=== PATIENT | male | born 1975 | race Hispanic/Latino ===

== ENCOUNTER 2020-09-01 14:19 | Inpatient (IN) | payer OTHER ==
[~2020-09-01] VITALS: Ht 190.5 cm; Wt 78.5 kg
[2020-09-01 14:45] LABS: BASOPHILS % (AUTO) 0.5 % (0.0-5.0); EOSINOPHILS % (AUTO) 2.4 % (0.0-8.0); HEMATOCRIT 41.5 % (42-54); MEAN CORPUSCULAR HEMOGLOBIN 30.8 pg (27.0-33.0); MEAN CORPUSCULAR HGB CONC 35.2 g/dL (32.0-36.0); MEAN CORPUSCULAR VOLUME 87.6 fL (79-99); MONOCYTES % (AUTO) 8.7 % (3.0-13.0); NEUTROPHILS % (AUTO) 67.2 % (40.0-77.0); PLATELET COUNT (AUTO) 295 K/uL (130-400); RED BLOOD CELL COUNT(AUTO) 4.74 MIL/uL (4.50-6.20); RED CELL DISTRIBUTION WIDTH 12.5 % (11.0-15.5); WHITE BLOOD COUNT (AUTO) 8.2 K/uL (4.8-10.8)
[2020-09-01] MEDS ORDERED: 0.9%NACL 1000ML 1,000 ML IV SCH (16:30)
[2020-09-01] MEDS ORDERED: 0.9%NACL 1000ML 1,000 ML IV ONE (16:30)
[2020-09-01 16:57] LABS: ACETAMINOPHEN < 1 mcg/mL (10-29); ALCOHOL, BLOOD < 3 mg/dL (0-10); SALICYLATE < 2.8 mg/dL (2.8-20.0)
[2020-09-01 17:01] LABS: CREATININE 0.7 mg/dL (0.5-1.5); POTASSIUM 3.8 mmol/L (3.5-5.1)
[2020-09-01 17:06] LABS: ALBUMIN 4.2 g/dL (3.5-5.0); BILIRUBIN,TOTAL 0.5 mg/dL (0.2-1.0); TOTAL PROTEIN, SERUM 7.2 g/dL (6.0-8.3)
[2020-09-01 17:33] LABS: APPEARANCE,URINE Clear (CLEAR); BILIRUBIN,URINE Negative (NEGATIVE); COLOR,URINE Yellow (YELLOW); GLUCOSE, URINE (UA) Negative (NEGATIVE); KETONES,URINE Negative (NEGATIVE); LEUKOCYTE ESTERASE ,URINE Negative (NEGATIVE); NITRATE,URINE Negative (NEGATIVE); OCCULT BLOOD,URINE Negative (NEGATIVE); PROTEIN,URINE Negative (NEGATIVE)
[2020-09-01] MEDS ORDERED: HYDR-4030 PO (17:39)
[2020-09-01] MEDS ORDERED: QUET50TA22 PO (17:39)
[2020-09-01] MEDS ORDERED: ONDA4TAB4 PO (17:39)
[2020-09-01] MEDS ORDERED: MAGN30OR PO (17:39)
[2020-09-01] MEDS ORDERED: LOPE2CAP PO (17:39)
[2020-09-01] MEDS ORDERED: OLAN10VI2 IM (17:39)
[2020-09-01] MEDS ORDERED: LORAZEPAM 2 MG/ML 1 ML VIAL ONE (17:40)
[2020-09-01] MEDS ORDERED: HALOPERIDOL LACTATE 5 MG/ML VIAL ONE (17:40)
[2020-09-01 17:41] LABS: AMPHET/METH SCREEN,URINE NEGATIVE (NEGATIVE); BARBITURATE SCREEN, URINE NEGATIVE (NEGATIVE); BENZODIAZEPINES SCREEN,URINE NEGATIVE (NEGATIVE); CANNABINOID SCREEN,URINE NEGATIVE (NEGATIVE); COCAINE SCREEN,URINE NEGATIVE (NEGATIVE); OPIATE SCREEN,URINE NEGATIVE (NEGATIVE); PHENCYCLIDINE SCREEN,URINE NEGATIVE (NEGATIVE)
[2020-09-01] MEDS: 0.9%NACL 1000ML 1,000 ML IV SCH ×2 (17:49→23:55)
[2020-09-01] MEDS ORDERED: LORAZEPAM 2 MG/ML 1 ML VIAL IVP ONE (18:00)
[2020-09-01] MEDS ORDERED: HALOPERIDOL LACTATE 5 MG/ML VIAL IV SCH (18:00)
[2020-09-01] MEDS ORDERED: DiphenhydrAMINE HCL 50 MG/ML VIAL IV ONE (18:00)
[2020-09-01] MEDS ORDERED: HALOPERIDOL LACTATE 5 MG/ML VIAL IM SCH (18:30)
[2020-09-01] MEDS ORDERED: LORAZEPAM 2 MG/ML 1 ML VIAL IVP STA (18:39)
[2020-09-01 19:53] VITALS: BP 137/78
[2020-09-01] MEDS ORDERED: ZIPRASIDONE MESYLATE 20 MG/VIAL IM ONE (20:00)
[2020-09-01] MEDS ORDERED: HYDROXYZINE 25 MG TABLET PO PRN (22:00)
[2020-09-01] MEDS ORDERED: QUETIAPINE FUMARATE 25 MG TAB PO PRN (22:00)
[2020-09-01 22:30] VITALS: BP 136/57
[2020-09-02] VITALS (7 sets, daily range): BP systolic 128–154; BP diastolic 64–99
[2020-09-02] MEDS: 0.9%NACL 1000ML 1,000 ML IV SCH ×3 (06:36→21:41)
[2020-09-02] MEDS ORDERED: 0.9% NACL 500ML IV.SOLN 500 ML IV ONE ×2 (07:45→08:00)
[2020-09-02] MEDS ORDERED: ZIPRASIDONE MESYLATE 20 MG/VIAL IM ONE (08:30)
[2020-09-02] MEDS ORDERED: ZIPRASIDONE MESYLATE 20 MG/VIAL IM SCH (08:30)
[2020-09-02] MEDS ORDERED: LORAZEPAM 2 MG/ML 1 ML VIAL IM PRN (08:30)
[2020-09-02] MEDS ORDERED: LORAZEPAM 2 MG/ML 1 ML VIAL ONE (08:48)
[2020-09-02 09:44] LABS: BASOPHILS % (AUTO) 0.4 % (0.0-5.0); EOSINOPHILS % (AUTO) 1.6 % (0.0-8.0); HEMATOCRIT 43.9 % (42-54); LYMPHOCYTES % (AUTO) 22.5 % (21.0-51.0); MEAN CORPUSCULAR HEMOGLOBIN 31.1 pg (27.0-33.0); MEAN CORPUSCULAR HGB CONC 34.2 g/dL (32.0-36.0); MEAN CORPUSCULAR VOLUME 90.9 fL (79-99); MONOCYTES % (AUTO) 6.8 % (3.0-13.0); NEUTROPHILS % (AUTO) 68.4 % (40.0-77.0); PLATELET COUNT (AUTO) 274 K/uL (130-400); RED BLOOD CELL COUNT(AUTO) 4.83 MIL/uL (4.50-6.20); WHITE BLOOD COUNT (AUTO) 7.6 K/uL (4.8-10.8)
[2020-09-02 10:13] LABS: CREATININE 0.6 mg/dL (0.5-1.5); POTASSIUM 3.7 mmol/L (3.5-5.1)
[2020-09-02] MEDS: LORAZEPAM 2 MG/ML 1 ML VIAL IM PRN ×2 (12:22→19:10)
[2020-09-02] MEDS ORDERED: ZIPRASIDONE MESYLATE 20 MG/VIAL IM PRN (16:00)
[2020-09-02] MEDS: HYDROXYZINE 25 MG TABLET PO SCH ×2 (16:37→21:42)
[2020-09-02] MEDS: OLANZAPINE 5 MG TAB PO SCH ×2 (16:37→21:42)
[2020-09-02] MEDS: QUETIAPINE FUMARATE 100 MG TAB PO SCH ×2 (16:37→21:42)
[2020-09-02] MEDS ORDERED: OLANZAPINE 10MG/ML 1ML VIAL IM SCH (17:00)
[2020-09-03] VITALS (7 sets, daily range): BP systolic 127–150; BP diastolic 70–98
[2020-09-03] MEDS: 0.9%NACL 1000ML 1,000 ML IV SCH ×4 (03:00→21:29)
[2020-09-03 05:19] LABS: HEMATOCRIT 40.9 % (42-54); MEAN CORPUSCULAR HEMOGLOBIN 30.4 pg (27.0-33.0); MEAN CORPUSCULAR HGB CONC 34.2 g/dL (32.0-36.0); MEAN CORPUSCULAR VOLUME 88.9 fL (79-99); RED BLOOD CELL COUNT(AUTO) 4.6 MIL/uL (4.50-6.20); WHITE BLOOD COUNT (AUTO) 6.1 K/uL (4.8-10.8)
[2020-09-03 05:45] LABS: CREATININE 0.6 mg/dL (0.5-1.5); POTASSIUM 3.7 mmol/L (3.5-5.1)
[2020-09-03] MEDS: HYDROXYZINE 25 MG TABLET PO SCH ×3 (07:03→21:29)
[2020-09-03] MEDS: QUETIAPINE FUMARATE 100 MG TAB PO SCH ×2 (07:04→21:29)
[2020-09-03] MEDS: OLANZAPINE 5 MG TAB PO SCH ×3 (07:04→21:29)
[2020-09-03] MEDS: LORAZEPAM 2 MG/ML 1 ML VIAL IM PRN ×3 (08:14→23:52)
[2020-09-03] MEDS ORDERED: 0.9% NACL 500ML IV.SOLN 500 ML IV SCH (11:30)
[2020-09-03] MEDS ORDERED: RISPERIDONE 1 MG TABLET PO SCH (15:00)
[2020-09-03] MEDS: RISPERIDONE 1 MG TABLET PO SCH (21:29)
[2020-09-04 04:00] VITALS: BP 152/93
[2020-09-04] MEDS: 0.9%NACL 1000ML 1,000 ML IV SCH (04:33)
[2020-09-04] MEDS: HYDROXYZINE 25 MG TABLET PO SCH (10:23)
[2020-09-04] MEDS: QUETIAPINE FUMARATE 100 MG TAB PO SCH (10:24)
[2020-09-04] MEDS: OLANZAPINE 5 MG TAB PO SCH (10:24)
[2020-09-04] MEDS: RISPERIDONE 1 MG TABLET PO SCH (10:27)
== END 2020-09-04 13:58 | DRG 558 ==
LOC: EDH 14:19 → EDHIP 14:20 → 4DH 09-02 12:04
PROVIDERS: ADMIT Internal Medicine; ATTEND Internal Medicine
DX: M62.82 Rhabdomyolysis (principal); F20.0 Paranoid schizophrenia; F31.9 Bipolar disorder, unspecified; R73.9 Hyperglycemia, unspecified; R74.01 Elevation of levels of liver transaminase levels
CPT/HCPCS: 36415; 71045; 80048; 80053; 80305; 81003; 82550; 84484; 85025; 85027; 93005; G0378; G0481; J1200; J1630; J2060; J3486; J3490; J7030; J7040